=== PATIENT | female | born 1995 | race Caucasian/White ===

== ENCOUNTER 2022-05-30 17:18 | Emergency (ER) | payer BC, OTHER ==
[2022-05-30 17:33] VITALS: BP 99/67; RESP 18; TEMP 98.2; BMI 27.9
[2022-05-30] MEDS ORDERED: KETOROLAC TROMETHAMINE 30 MG/1 ML VIAL IVPUSH ONE (17:42)
[2022-05-30] MEDS ORDERED: METOCLOPRAMIDE HCL INJECTION 10 MG/2 ML VIAL IVPUSH ONE (17:42)
[2022-05-30] MEDS ORDERED: SODIUM CHLORIDE 1,000 ML IV STA (17:42)
[2022-05-30] MEDS ORDERED: KETOROLAC TROMETHAMINE 30 MG/1 ML VIAL ONE (17:57)
[2022-05-30] MEDS ORDERED: METOCLOPRAMIDE HCL INJECTION 10 MG/2 ML VIAL ONE (17:58)
[2022-05-30 18:48] VITALS: PULSE 86
== END 2022-05-30 18:51 | disposition home or self-care (01) ==
LOC: JERFT 17:18 → JER 17:18 → JERFT 18:51
PROC: 3E033GC Introduction of Other Therapeutic Substance into Peripheral Vein, Percutaneous Approach (ICD-10-PCS; principal; 2022-05-30)
PROC: 3E0333Z Introduction of Anti-inflammatory into Peripheral Vein, Percutaneous Approach (ICD-10-PCS; 2022-05-30)
PROC: 3E033GC Introduction of Other Therapeutic Substance into Peripheral Vein, Percutaneous Approach (ICD-10-PCS; 2022-05-30)
PROC: 3E0337Z Introduction of Electrolytic and Water Balance Substance into Peripheral Vein, Percutaneous Approach (ICD-10-PCS; 2022-05-30)
DX: G44.89 Other headache syndrome (principal)
CPT/HCPCS: 99284-25

== ENCOUNTER 2024-02-04 09:07 | Emergency (ER) | payer BC, OTHER ==
[2024-02-04 09:14] VITALS: BMI 25.2
[2024-02-04] MEDS ORDERED: MAG HYDROX/AL HYDROX/SIMETH 30 ML UNIT-DOSE CUP ONE (09:52)
[2024-02-04] MEDS ORDERED: ONDANSETRON 4 MG/2 ML VIAL ONE (09:52)
[2024-02-04] MEDS ORDERED: ACETAMINOPHEN INJECTION 100 ML IVPB ONE (09:52)
[2024-02-04] MEDS ORDERED: FAMOTIDINE 20 MG/50 ML IVPB 20 MG/50 ML MG IVPB ONE (09:52)
[2024-02-04] MEDS: SODIUM CHLORIDE 0.9% 500 ML INFUS.BAG IV ONE ×2 (10:10→11:59)
[2024-02-04] MEDS: MAG HYDROX/AL HYDROX/SIMETH 30 ML UNIT-DOSE CUP PO ONE (10:10)
[2024-02-04] MEDS: ACETAMINOPHEN 1000 MG/100 ML BAG IVPB ONE (10:10)
[2024-02-04] MEDS: FAMOTIDINE 20 MG/50 ML IVPB 20 MG/50 ML MG IVPB ONE (10:11)
[2024-02-04] MEDS: ONDANSETRON 4 MG/2 ML VIAL IVPUSH ONE (10:11)
[2024-02-04 10:25] LABS: BASO % 0.2 % (0-2.0); EOS % 0.1 % (0-4.5); HEMATOCRIT 39.1 % (32.4-45.2); LYMPH % 12.9 % (8-40); MCH 27.8 pg (25.7-33.7); MCHC 33.4 g/dl (32.0-36.0); MEAN CELL VOLUME 83.4 fl (80-96); MEAN PLT VOLUME 8.2 fl (7.5-11.1); MONO % 6.1 % (3.8-10.2); NEUT % 80.7 % (42.8-82.8); PLATELET COUNT 295 10^3/uL (134-434); RBC 4.68 M/mm3 (3.60-5.2); RDW 14.7 % (11.6-15.6); WHITE BLOOD COUNT 5.8 K/mm3 (4.0-10.0)
[2024-02-04 10:39] LABS: POTASSIUM 3.1 mmol/L (3.5-5.1)
[2024-02-04 10:41] LABS: CALCIUM 9.2 mg/dL (8.5-10.1)
[2024-02-04 10:42] LABS: ALBUMIN 3.5 g/dl (3.4-5.0); BLOOD UREA NITROGEN 12.2 mg/dL (7-18); MAGNESIUM 1.7 mg/dL (1.8-2.4)
[2024-02-04 10:44] LABS: CREATININE 0.8 mg/dL (0.55-1.3)
[2024-02-04 10:46] LABS: BILIRUBIN,TOTAL 0.6 mg/dL (0.2-1); TOT PROT 7.8 g/dl (6.4-8.2)
[2024-02-04] MEDS ORDERED: POTASSIUM CHLORIDE ORAL LIQUID 20 MEQ/15 ML ONE (10:51)
[2024-02-04] MEDS ORDERED: MAGNESIUM SULFATE IN WATER 2 GM/50 ML IVPB IVPB ONE (10:51)
[2024-02-04] MEDS: MAGNESIUM SULF 50% (8.12 MEQ/2 ML-1 GM VIAL) IVPB ONE (10:58)
[2024-02-04] MEDS: POTASSIUM CHLORIDE ORAL LIQUID 20 MEQ/15 ML PO ONE (10:59)
[2024-02-04] MEDS ORDERED: METOCLOPRAMIDE HCL INJECTION 10 MG/2 ML VIAL ONE (11:32)
[2024-02-04] MEDS: METOCLOPRAMIDE HCL INJECTION 10 MG/2 ML VIAL IVPUSH ONE (11:36)
[2024-02-04 11:54] VITALS: RESP 20
[2024-02-04 14:20] VITALS: BP 104/63; PULSE 99; TEMP 98.8
== END 2024-02-04 14:56 | disposition home or self-care (01) ==
LOC: JER 09:07
PROC: 3E033GC Introduction of Other Therapeutic Substance into Peripheral Vein, Percutaneous Approach (ICD-10-PCS; principal; 2024-02-04)
PROC: 3E030GC Introduction of Other Therapeutic Substance into Peripheral Vein, Open Approach (ICD-10-PCS; 2024-02-04)
PROC: 3E030GC Introduction of Other Therapeutic Substance into Peripheral Vein, Open Approach (ICD-10-PCS; 2024-02-04)
PROC: 3E030GC Introduction of Other Therapeutic Substance into Peripheral Vein, Open Approach (ICD-10-PCS; 2024-02-04)
PROC: 3E030GC Introduction of Other Therapeutic Substance into Peripheral Vein, Open Approach (ICD-10-PCS; 2024-02-04)
DX: R11.2 Nausea with vomiting, unspecified (principal); R19.7 Diarrhea, unspecified; R50.9 Fever, unspecified; R10.816 Epigastric abdominal tenderness; R00.0 Tachycardia, unspecified; Z20.822 Contact with and (suspected) exposure to COVID-19
CPT/HCPCS: 0241U-QW; 36415; 80053; 83690; 83735; 84703; 85025; 93005; 93010; 99291; J0131

== ENCOUNTER 2024-02-06 10:40 | Emergency (ER) | payer OTHER ==
[2024-02-06 11:44] LABS: BASO % 0.4 % (0-2.0); EOS % 3.2 % (0-4.5); HEMATOCRIT 37.8 % (32.4-45.2); HEMOGLOBIN 12.3 GM/dL (10.7-15.3); LYMPH % 28.9 % (8-40); MCH 27.4 pg (25.7-33.7); MCHC 32.5 g/dl (32.0-36.0); MEAN CELL VOLUME 84.1 fl (80-96); MEAN PLT VOLUME 8.2 fl (7.5-11.1); MONO % 18.9 % (3.8-10.2); NEUT % 48.6 % (42.8-82.8); PLATELET COUNT 298 10^3/uL (134-434); RDW 15.1 % (11.6-15.6); WHITE BLOOD COUNT 3.7 K/mm3 (4.0-10.0)
[2024-02-06] MEDS ORDERED: ACETAMINOPHEN INJECTION 100 ML IVPB ONE (11:54)
[2024-02-06] MEDS ORDERED: FAMOTIDINE 20 MG/50 ML IVPB 20 MG/50 ML MG IVPB ONE (11:54)
[2024-02-06] MEDS: FAMOTIDINE 20 MG/50 ML IVPB 20 MG/50 ML MG IVPB ONE (12:09)
[2024-02-06] MEDS: ACETAMINOPHEN 1000 MG/100 ML BAG IVPB ONE (12:09)
[2024-02-06] MEDS: LACTATED RINGERS SOLUTION 1000 ML INFUS.BAG IV ONE (12:33)
[2024-02-06 12:53] LABS: POTASSIUM 4.4 mmol/L (3.5-5.1)
[2024-02-06 12:57] LABS: CALCIUM 9.1 mg/dL (8.5-10.1)
[2024-02-06 12:59] VITALS: RESP 18; BMI 25.2
[2024-02-06 12:59] LABS: ALBUMIN 3.1 g/dl (3.4-5.0); BLOOD UREA NITROGEN 14.9 mg/dL (7-18); MAGNESIUM 1.9 mg/dL (1.8-2.4)
[2024-02-06 13:02] LABS: CREATININE 0.7 mg/dL (0.55-1.3)
[2024-02-06 13:03] LABS: BILIRUBIN,TOTAL 0.3 mg/dL (0.2-1); TOT PROT 7.3 g/dl (6.4-8.2)
[2024-02-06 14:12] VITALS: BP 105/63; PULSE 80; TEMP 97.6
== END 2024-02-06 15:26 | disposition home or self-care (01) ==
LOC: JER 10:40
PROC: 3E033GC Introduction of Other Therapeutic Substance into Peripheral Vein, Percutaneous Approach (ICD-10-PCS; principal; 2024-02-06)
PROC: 3E033NZ Introduction of Analgesics, Hypnotics, Sedatives into Peripheral Vein, Percutaneous Approach (ICD-10-PCS; 2024-02-06)
DX: K62.5 Hemorrhage of anus and rectum (principal); K52.9 Noninfective gastroenteritis and colitis, unspecified; R10.13 Epigastric pain; R10.33 Periumbilical pain
CPT/HCPCS: 36415; 74177-TC; 76705-TC; 80053; 82272; 83690; 83735; 84703; 85025; 99285-25; J0131; Q9967